=== PATIENT | male | born 1950 | race Caucasian/White ===

== ENCOUNTER → 2017-02-07 | Outpatient (CLI) | payer BC ==
[~2017-02-07] VITALS: Ht 180.3 cm; Wt 122.7 kg
[~2017-02-07] MED LIST: ASPIR-LOW81 MG PO; CALCIUM 600MG+D1 TAB PO; CHANTIX 0.5MG0.5 MG PO; CPAP; FOSAMAX 70MG TA70 MG PO; HCTZ 25MG TAB25 MG PO; PHENTERMINE15 MG PO; PRINIVIL10 MG PO; PROAIR HFA0.09 MG/AC IH; PROSCAR 5MG5 MG PO; RT SPIRIVA18 MCG IH; TRICOR48 MG PO; ULTRAM 50MG TAB50 MG PO; WELLBUTRIN XL300 M1 PO; ZOCOR 20MG20 MG PO
[2017-02-07 10:59] VITALS: BP 133/99; PULSE 117; TEMP 99.1
[2017-02-07 13:01] VITALS: BP 132/96; PULSE 99
== END ==
LOC: EUO 10:43 → COL.RAD 11:00
DX: S32.000G Wedge compression fracture of unspecified lumbar vertebra, subsequent encounter for fracture with delayed healing (principal); X58.XXXD Exposure to other specified factors, subsequent encounter
CPT/HCPCS: C1713; J2250; J3010; J7040

== ENCOUNTER 2017-11-04 09:48 | Day surgery (SDC) | payer MEDICARE, OTHER ==
[2017-11-04] VITALS (10 sets, daily range): BP systolic 110–137; BP diastolic 78–94; PULSE 73–98; TEMP 97.7–97.8
[~2017-11-04] VITALS: Ht 180.3 cm; Wt 129.4 kg
[2017-11-04 10:21] LABS: HEMATOCRIT 47.6 % (42.0-52.0); HEMOGLOBIN 16.3 g/dl (13.5-18.0); MEAN CELL VOLUME 92 fl (80.0-100.0); MEAN CORPUSCULAR HEMOGLOBIN 32 pg (27.0-31.0); MEAN CORPUSCULAR HGB CONC 34 g/dl (33.0-37.0); MEAN PLATELET VOLUME 10.3 fl (7.4-10.4); PLATELET COUNT 240 K/mm3 (130-400); RED BLOOD COUNT 5.17 M/mm3 (4.20-5.60)
[2017-11-04] MEDS ORDERED: NORCO 325 MG-7.1 TAB PO (10:22)
[2017-11-04] MEDS ORDERED: MOTRIN 600600 MG/TAB PO (10:23)
[2017-11-04 10:24] LABS: PROTHROMBIN TIME 11.1 SECONDS (9.7-12.8)
[2017-11-04] MEDS ORDERED: ASPIRIN 32325 MG/TA1 PO (10:24)
[2017-11-04] MEDS ORDERED: TOPROL XL100 MG PO (10:24)
[2017-11-04 10:29] LABS: WHITE BLOOD COUNT 26.8 K/mm3 (4.8-10.8)
[2017-11-04 10:31] LABS: CALCIUM 9.8 mg/dL (8.4-10.2); CREATININE, serum 0.81 mg/dL (0.66-1.25); POTASSIUM 4.1 mmol/L (3.4-5.0)
== END 2017-11-04 17:10 | disposition home or self-care (01) ==
LOC: COL.CAR 09:48
PROVIDERS: Internal Medicine Cardiovascular Disease
DX: I27.29 Other secondary pulmonary hypertension (principal); R94.39 Abnormal result of other cardiovascular function study; J44.9 Chronic obstructive pulmonary disease, unspecified; I10 Essential (primary) hypertension; E78.5 Hyperlipidemia, unspecified; G47.33 Obstructive sleep apnea (adult) (pediatric); I25.2 Old myocardial infarction; F17.210 Nicotine dependence, cigarettes, uncomplicated; Z86.79 Personal history of other diseases of the circulatory system
CPT/HCPCS: J2250; J3010; Q9967

== ENCOUNTER → 2018-03-12 | Outpatient (CLI) | payer MEDICARE, OTHER ==
[~2018-03-12] MED LIST changes: +ASPIRIN 32325 MG/TA1 PO; +MOTRIN 600600 MG/TAB PO; +NORCO 325 MG-7.1 TAB PO; +TOPROL XL100 MG PO
[2018-03-12 16:06] LABS: BASO % 0.4 % (0.0-2.0); EOS # 0.2 (0.0-0.7); EOS % 1.6 % (0-4.0); GRAN # 5.1 (1.4-6.5); GRAN % 54.6 % (42.2-75.2); HEMATOCRIT 43.5 % (42.0-52.0); HEMOGLOBIN 15.1 g/dl (13.5-18.0); LYMPH # 3.1 (1.2-3.4); LYMPH % 32.7 % (20.0-51.0); MEAN CELL VOLUME 91 fl (80.0-100.0); MEAN CORPUSCULAR HEMOGLOBIN 32 pg (27.0-31.0); MEAN CORPUSCULAR HGB CONC 35 g/dl (33.0-37.0); MEAN PLATELET VOLUME 10.2 fl (7.4-10.4); MONO % 10.3 % (1.7-9.3); PLATELET COUNT 192 K/mm3 (130-400); RED BLOOD COUNT 4.78 M/mm3 (4.20-5.60); REDCELL DISTRIBUTION WIDTH-CV 13.2 % (11.5-14.5)
[2018-03-12 16:28] LABS: TROPONIN-I < 0.012 ng/mL (0.000-0.034)
[2018-03-12 16:38] LABS: ANION GAP 10 mmol/L (7-16); BLOOD UREA NITROGEN 13 mg/dL (9-20); CALCIUM 8.8 mg/dL (8.4-10.2); CARBON DIOXIDE 22 mmol/L (22-30); CHLORIDE 108 mmol/L (98-107); CREATININE, serum 0.77 mg/dL (0.66-1.25); GLUCOSE 101 mg/dL (74-106); POTASSIUM 4.1 mmol/L (3.4-5.0); SODIUM 140 mmol/L (137-145)
== END ==
LOC: COL.LAB 15:45
PROVIDERS: Internal Medicine
DX: I50.30 Unspecified diastolic (congestive) heart failure (principal)

== ENCOUNTER → 2019-08-17 | Outpatient (CLI) | payer MEDICARE, OTHER | LOC: MHCPAIN 08:08 | DX: G89.29 Other chronic pain (principal); M47.817 Spondylosis without myelopathy or radiculopathy, lumbosacral region; M53.3 Sacrococcygeal disorders, not elsewhere classified | CPT/HCPCS: G0463 ==

== ENCOUNTER → 2019-08-26 | Outpatient (CLI) | payer MEDICARE, OTHER | LOC: MHCPAIN 07:32 | DX: M47.817 Spondylosis without myelopathy or radiculopathy, lumbosacral region (principal); M54.16 Radiculopathy, lumbar region ==

== ENCOUNTER → 2019-08-31 | Outpatient (CLI) | payer MEDICARE, OTHER | LOC: MHCPAIN 12:01 | DX: G89.29 Other chronic pain (principal); M47.817 Spondylosis without myelopathy or radiculopathy, lumbosacral region; M53.3 Sacrococcygeal disorders, not elsewhere classified | CPT/HCPCS: G0463 ==

== ENCOUNTER → 2023-08-27 | Outpatient (CLI) | payer MEDICARE, OTHER | LOC: COL.RAD 11:52 | DX: Z12.2 Encounter for screening for malignant neoplasm of respiratory organs (principal); F17.210 Nicotine dependence, cigarettes, uncomplicated ==